=== PATIENT | female | born 1960 | race Caucasian/White ===

== ENCOUNTER 2016-09-20 11:01 | Inpatient (IN) | payer OTHER ==
[2016-09-15 17:05] LABS: BASOPHILS 0.2 %; BASOPHILS ABSOLUTE 0.01 10/3/uL (0.0-0.16); EOSINOPHILS 1.9 %; EOSINOPHILS ABSOLUTE 0.09 10/3/uL (0.0-0.53); IMMATURE GRANULOCYTES 0.4 %; IMMATURE GRANULOCYTES ABSOLUTE 0.02 10/3/uL (0.0-0.11); LYMPHOCYTES 19.4 %; LYMPHOCYTES ABSOLUTE 0.91 10/3/uL (0.67-4.30); MEAN CORPUS HGB CONC 33.5 g/dL (32.0-36.0); MEAN PLATELET VOLUME 9.9 fL (9.2-13.0); MONOCYTES 7.9 %; MONOCYTES ABSOLUTE 0.37 10/3/uL (0.21-1.20); NEUTROPHILS 70.2 %; NEUTROPHILS ABSOLUTE 3.29 10/3/uL (2.02-8.40); PLATELET COUNT 149 10/3/uL (150-400); RBC DISTRIBUTION WIDTH 13.6 % (12.0-16.0); WHITE BLOOD CELLS 4.7 10/3/uL (4.5-10.5)
[2016-09-15 17:07] LABS: HEMATOCRIT 40.3 % (36.0-48.0); HEMOGLOBIN 13.5 g/dL (12.0-16.0); MANUAL DIFF NO %; MEAN CORPUSCULAR HEMOGLOB 31.8 pg (26.0-34.0); RED CELL COUNT 4.24 10/6/uL (4.0-5.6)
[2016-09-15 17:19] LABS: BUN (BLOOD UREA NITROGEN) 17 MG/DL (6-23); CHLORIDE, SERUM 103 MMOL/L (96-112); CO2 (CARBON DIOXIDE) 30 MMOL/L (24-34); CREATININE 0.77 MG/DL (0.55-1.02); GFR AFRICAN AMERICAN 102 ML/MIN (>=60); GFR NON AFRICAN AMERICAN 88 ML/MIN (>=60); GLUCOSE, SERUM 117 MG/DL (60-99); POTASSIUM, SERUM 3.9 MMOL/L (3.5-5.3); SODIUM, SERUM 141 MMOL/L (135-148)
--- NOTE | ~2016-09-20 | HP ---
History And Physical [address] [address] NAME: LUCA BURNETT : 64 STATUS : ADM IN [facility]#: [id number] AGE: 55 ADM/REG DATE : 09/20/16 MR#: [id number] REPORT SERV DATE: 09/20/16 DICTATED BY: HUMA FERNANDEZ DATE: 09/20/16 REPORT STATUS : Draft TRANSCRIBED BY: CELESTE DATE: 09/20/16 DATE OF ADMISSION: 09/20/2016 PREADMISSION DIAGNOSIS: Ventral hernia x2, status post repair which is open repair with mesh. PAST MEDICAL HISTORY: Significant for fecal incontinence, thyroid cancer, rectal cancer, status post resection, anxiety, depression and then midline and ileostomy site hernia. PAST SURGICAL HISTORY: Colonoscopy, sphincterotomy, thyroidectomy, lens replacement, low anterior resection, laparoscopic cholecystectomy, and ileostomy reversal. SOCIAL HISTORY: She used to smoke half a pack of cigarettes per day. She is a social drinker and she consumes 1 shot of liquor and 2 beers per month. She is . FAMILY HISTORY: Significant for breast cancer, cervical cancer, and leukemia. ALLERGIES: XELODA. MEDICATIONS: Melatonin, Prevacid, Lexapro, minocycline, , Brisdelle, aspirin, Synthroid, and trazodone. REVIEW OF SYSTEMS: As stated in the HPI, otherwise, negative. PHYSICAL EXAMINATION: VITAL SIGNS: 165, 109, 112/78. BMI of 29. GENERAL: Alert white female, in no acute distress. HEENT: Normocephalic, atraumatic. EOMI. PERRLA. Oropharynx is clear. NECK: Supple. No lymphadenopathy. LUNGS: Clear to auscultation bilaterally. HEART: Regular rate and rhythm. ABDOMEN: Obese, but does have the appropriate surgical scars with the ventral hernia at the midline and at the ileostomy site. EXTREMITIES: Moves all extremities well. NEUROLOGIC: Cranial nerves II through XII intact. SKIN: No rashes. ASSESSMENT AND PLAN: A 55-year-old female with ventral hernia repair x2. Plan is for admission. I have discussed risks, benefits, and alternatives. She understands and is willing to proceed. DEON/CELESTE History And Physical [address] [place]. [address] NAME: LUCA BURNETT : 64 STATUS : ADM IN PAT#: [id number] AGE: 55 ADM/REG DATE : 09/20/16 MR#: [id number] REPORT SERV DATE: 09/20/16 DICTATED BY: HUMA FERNANDEZ DATE: 09/20/16 REPORT STATUS : Draft TRANSCRIBED BY: MODL DATE: 09/20/16 Huma Fernandez M.D. / [id number] CC: Huma Fernandez M.D.
--- NOTE | ~2016-09-20 | OP ---
Record Of Operation [facility] [address] [place]. 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 During that time, she developed incisional hernias both at the midline and at the area of the prior ileostomy site even though the midline and the ileostomy site was closed with Prolene sutures, she has developed recurrence. PROCEDURE: Open ventral hernia repair with 20/25 cm Ventralight mesh. EDITOR CONTINUITY AND SCRIPT: Lydia. DESCRIPTION OF PROCEDURE: The patient was taken to the operating room, induced under general anesthesia, prepped and draped in the usual sterile fashion. Her prior incision was used with the scalpel blade carried down to the level of the fascia. It was actually the hernia sac and this was elevated up off the abdominal wall in order to enter this using a scalpel. Bigg's were placed on actual fascia which had by 4 cm and all the omentum was mobilized out of the hernia sac, both at the midline at the prior ileostomy site. Once this was accomplished, the 20/25 piece of Ventralight mesh was soaked. The Seprafilm side went down towards the bowel. It was tacked in four quadrants and then 2 to 3 interrupted Prolene stitches in between each one to create the hernia repair. The fascia was closed at the ileostomy site with a Prolene suture and the midline was closed with [id number] Prolene stitches. The wounds were irrigated. The skin was closed with 4-0 Monocryl subcu followed by Mastisol, Steri-Strips, and an airstrip. She tolerated the procedure well. DEON/CELESTE Huma Burris M.D. / [id number] CC: Mima Bell M.D.
[~2016-09-20 11:01] MED LIST: ALREX0.2 %; AMBIEN CR12.5 MG PO; ASAB PO; ATV1 PO; BACDS PO; BRISDELLE PO; COMP10B PO; DIL2TAB PO; DURA50 TOP; DYNACIN50 MG PO; ELIQUIS 5 MG TAB5 MG PO; FLAG500TAB PO; GRANISETRON 3.1 MG TOP; HYOMAX-SL0.125 MG; IMOD PO; KLOR-CON M2020 MEQ PO; LEVAQUIN750 MG PO; LEVSINTAB SL; LEXAPRO10 PO; LEXAPRO20 PO; LOM PO; LOTEMAX OPH SUSP5 ML OPH; LOVENOX80 SC; MAGOX4 PO; MELA3 PO; MELATONIN5 M1 PO; MINOCIN50 PO; NORCO1 TA2 PO; PREV15 PO; PREV30; PREV30 PO; PROAMAT5 PO; QUESLITE PO; REG5 PO; RESTASIS OPH; SYN1 PO; SYNTHROID200 MCG PO; T PO; TRAZ100 PO; TRAZ50 PO; VITAMIN D31000 UNIT PO; VITC500 PO; WELCHOL 625 MG625 MG PO; ZINC PO; ZOFRAN8 PO
[2016-09-20 14:43] LABS: HEMATOCRIT 38.9 % (36.0-48.0); HEMOGLOBIN 13.3 g/dL (12.0-16.0)
[2016-09-21 05:27] LABS: BASOPHILS 0 %; EOSINOPHILS 0 %; HEMATOCRIT 39.9 % (36.0-48.0); HEMOGLOBIN 13.3 g/dL (12.0-16.0); IMMATURE GRANULOCYTES 0.4 %; IMMATURE GRANULOCYTES ABSOLUTE 0.04 10/3/uL (0.0-0.11); LYMPHOCYTES ABSOLUTE 0.44 10/3/uL (0.67-4.30); MEAN CORPUS HGB CONC 33.3 g/dL (32.0-36.0); MEAN CORPUSCULAR HEMOGLOB 32.1 pg (26.0-34.0); MEAN CORPUSCULAR VOLUME 96.4 fL (80-100); MEAN PLATELET VOLUME 9.7 fL (9.2-13.0); MONOCYTES 3.1 %; MONOCYTES ABSOLUTE 0.34 10/3/uL (0.21-1.20); NEUTROPHILS 92.5 %; NEUTROPHILS ABSOLUTE 10.31 10/3/uL (2.02-8.40); PLATELET COUNT 140 10/3/uL (150-400); RBC DISTRIBUTION WIDTH 13.3 % (12.0-16.0); RED CELL COUNT 4.14 10/6/uL (4.0-5.6)
[2016-09-21 05:29] LABS: MANUAL DIFF NO %; WHITE BLOOD CELLS 11.1 10/3/uL (4.5-10.5)
[2016-09-21 06:07] LABS: CALCIUM, SERUM 8.9 MG/DL (8.5-10.4); CHLORIDE, SERUM 108 MMOL/L (96-112); CO2 (CARBON DIOXIDE) 26 MMOL/L (24-34); CREATININE 0.68 MG/DL (0.55-1.02); GFR AFRICAN AMERICAN 116 ML/MIN (>=60); GFR NON AFRICAN AMERICAN 100 ML/MIN (>=60); GLUCOSE, SERUM 133 MG/DL (60-99); POTASSIUM, SERUM 4.6 MMOL/L (3.5-5.3); SODIUM, SERUM 142 MMOL/L (135-148)
[2016-09-21 06:08] LABS: BUN (BLOOD UREA NITROGEN) 10 MG/DL (6-23)
[2016-09-21] MEDS ORDERED: DIL2TAB PO (09:42)
== END 2016-09-22 11:45 | disposition home or self-care (01) | DRG 355 ==
LOC: SDC/OF 11:01 → 5SO 17:06
PROVIDERS: Surgery
PROC: 3E0T3CZ (ICD-10-PCS; 2016-09-20)
PROC: 0WUF0JZ Supplement Abdominal Wall with Synthetic Substitute, Open Approach (ICD-10-PCS; principal; 2016-09-20 12:45)
DX: K43.9 Ventral hernia without obstruction or gangrene (principal); F32.9 Major depressive disorder, single episode, unspecified; K21.9 Gastro-esophageal reflux disease without esophagitis; Z85.850 Personal history of malignant neoplasm of thyroid; Z85.048 Personal history of other malignant neoplasm of rectum, rectosigmoid junction, and anus; F41.9 Anxiety disorder, unspecified; Z98.890 Other specified postprocedural states; Z90.49 Acquired absence of other specified parts of digestive tract; Z87.891 Personal history of nicotine dependence; Z80.3 Family history of malignant neoplasm of breast; Z80.8 Family history of malignant neoplasm of other organs or systems; Z80.6 Family history of leukemia; Z88.5 Allergy status to narcotic agent; Z79.82 Long term (current) use of aspirin; Z79.899 Other long term (current) drug therapy; E03.9 Hypothyroidism, unspecified
CPT/HCPCS: 80048; 85014; 85018; 85025; 87641; 93005; A9270-GY; C1781; C9113; J0690; J1170; J1885; J2250; J2405; J2710; J2795; J3010